=== PATIENT | male | born 1955 | race Caucasian/White ===

== ENCOUNTER 2016-11-09 04:16 | Inpatient (IN) ==
[2016-11-03 10:18] LABS: MANUAL DIFF NEEDED? NO; URINE MICRO REVIEW NEEDED? NO; URINE SOURCE CLEAN CATCH
[2016-11-03 10:24] LABS: BILIRUBIN URINE NEGATIVE (NEGATIVE); BLOOD URINE NEGATIVE (NEGATIVE); COLOR YELLOW; GLUCOSE URINE >1000 mg/dL (NEGATIVE); LEUKOCYTES URINE NEGATIVE (NEGATIVE); NITRITE URINE NEGATIVE (NEGATIVE); PH URINE 5.5; PROTEIN URINE NEGATIVE (NEGATIVE); SP GRAVITY URINE 1.027; TURBIDITY URINE CLEAR (CLEAR); UROBILINOGEN URINE NORMAL (NORMAL)
[2016-11-03 10:25] LABS: BASO% 0.5 % (0.0-0.8); EOS# 0.12 X1000 (0.0-0.7); EOS% 1.5 % (0.0-10.0); HEMATOCRIT 41.5 % (42.0-52.0); HEMOGLOBIN 14.1 g/dL (14.0-18.0); IMM GRAN# 0.03 X1000 (0.0-0.04); IMM GRAN% 0.4 % (0.0-0.5); LYMPH# 3.45 X1000 (1.2-3.4); LYMPH% 44.5 % (20.5-51.1); MCH 33.9 PG (27-31); MCV 99.8 FL (81-99); MONO# 0.51 X1000 (0.11-0.59); MONO% 6.6 % (1.7-9.3); MPV 9.7 FL (7.4-10.4); NEUT% 46.5 % (42.2-75.2); PLT 213 X1000 (130-400); RBC 4.16 XMIL (4.7-6.1); UR EPITHELIAL CELLS <10 /HPF (<10); URINE BACTERIA NEGATIVE /HPF; URINE RBC <10 /HPF (<10); URINE WBC <10 /HPF (<10)
[2016-11-03 10:33] LABS: INR 0.96; PROTIME 10.1 Seconds (9.2-11.7); PTT 24.3 Seconds (22.0-36.0)
[2016-11-03 11:36] LABS: AGAP 17; BUN 18 mg/dL (8-22); CALCIUM 9.4 mg/dL (8.8-10.2); CHLORIDE 98 mmol/L (98-107); COSMO 286; POTASSIUM 4.5 mmol/L (3.5-5.1); SODIUM 137 mmol/L (136-145); TCO2 22 mmol/L (25-35)
--- NOTE | 2016-11-03 11:54 | EKG Report ---
Test Performed on : 11/03/2016 09:50:00 AM Test Reason : PAT Blood Pressure : / mmHG Vent. Rate : 059 BPM Atrial Rate : 059 BPM P-R Int : 146 ms QRS Dur : 082 ms QT Int : 392 ms P-R-T Axes : 074 014 028 degrees QTc Int : 388 ms Sinus bradycardia. Otherwise normal ECG When compared with ECG of 29-JUL-2014 16:27, Non-specific change in ST segment in Inferior leads Nonspecific T wave abnormality has replaced inverted T waves in Inferior leads Nonspecific T wave abnormality no longer evident in Lateral leads Confirmed by Dani Hopkins MD ([id number]) on 11/03/2016 4:17:37 PM
[2016-11-09] MEDS ORDERED: MORPHINE IV PRN (06:57)
[2016-11-09] MEDS ORDERED: REGLAN ONE (08:00)
[2016-11-09] MEDS ORDERED: PEPCID ONE (08:00)
[2016-11-09] MEDS ORDERED: LYRICA ONE (08:01)
[2016-11-09] MEDS ORDERED: LR 1,000 ML ONE (08:01)
[2016-11-09] MEDS ORDERED: KEFZOL 1 GM/D5W 1 GM/50 ML IVPB ONE ×2 (08:01→11:29)
[2016-11-09] MEDS: COLACE PO SCH ×2 (08:26→20:24)
[2016-11-09] MEDS: CELEBREX PO SCH (08:32)
[2016-11-09] MEDS ORDERED: TORADOL ONE (10:12)
[2016-11-09] MEDS ORDERED: SODIUM CHLORIDE 0.9% ONE (10:12)
[2016-11-09] MEDS ORDERED: MARCAINE 0.25% PF/EPI 1:200,000 ONE (10:12)
[2016-11-09] MEDS ORDERED: CYKLOKAPRON 1,000 MG/NS 1,000 MG/100 ML IVPB ONE ×2 (10:12→13:02)
[2016-11-09] MEDS ORDERED: VANCOMYCIN ONE (10:12)
[2016-11-09] MEDS ORDERED: EXPAREL 1.3% ONE (10:13)
[2016-11-09] MEDS ORDERED: NEOSPORIN G.U. IRRIGANT ONE (10:13)
[2016-11-09 12:04] LABS: URINE MICRO REVIEW NEEDED? NO; URINE SOURCE CATH
[2016-11-09 12:16] LABS: BILIRUBIN URINE NEGATIVE (NEGATIVE); BLOOD URINE SMALL (NEGATIVE); COLOR YELLOW; GLUCOSE URINE 300 mg/dL (NEGATIVE); LEUKOCYTES URINE NEGATIVE (NEGATIVE); NITRITE URINE NEGATIVE (NEGATIVE); PH URINE 5.5; PROTEIN URINE NEGATIVE (NEGATIVE); SP GRAVITY URINE 1.025; TURBIDITY URINE CLEAR (CLEAR); UROBILINOGEN URINE NORMAL (NORMAL)
[2016-11-09 12:17] LABS: UR EPITHELIAL CELLS <10 /HPF (<10); URINE BACTERIA NEGATIVE /HPF; URINE WBC <10 /HPF (<10)
[2016-11-09] MEDS ORDERED: VERSED ONE (13:28)
[2016-11-09] MEDS ORDERED: FENTANYL ONE (13:29)
[2016-11-09] MEDS ORDERED: DIPRIVAN 1% 500 MG/50 ML BOTTLE ONE (13:29)
--- NOTE | 2016-11-09 13:32 | OPERATIVE NOTE ---
PROCEDURE DATE: 11/09/2016 PREOPERATIVE DIAGNOSIS: Degenerative joint disease, right knee. POSTOPERATIVE DIAGNOSIS: Degenerative joint disease, right knee. PROCEDURE: Right total knee replacement. SURGEON: Dr. Rene Pace. MOTION DESIGNER: NA Roberts. ANESTHESIA: Spinal. COMPLICATION: None. PROCEDURE IN DETAIL: This 61-year-old male presents for right knee replacement. Risks, benefits, and no guarantees were discussed, and he is willing to proceed. He was taken to the operating room and satisfactory anesthesia obtained. The right leg was prepped and draped in usual sterile fashion. A time-out was taken to confirm operative site, procedure, and patient. The leg was wrapped with an Esmarch. Tourniquet inflated to 350 mmHg. A midline incision was made over the front of the knee followed by a quad tendon sparing arthrotomy. The patella was everted and resurfaced with freehand technique and sized to a 41 medialized dome patella. With the patella subluxed laterally, the knee was flexed and an intramedullary hole made in the distal femur. The distal femoral cutting block was secured in 5 degrees of valgus and the femoral resection made. The femur was sized to a DePuy Attune size 7 femoral component. The 4-in-1 block was secured and the anterior, posterior, and chamfer cuts sequentially made. The PCL was retained. Any osteophytes debrided about the femur. With the knee flexed and a PCL retractor behind the tibia to protect the PCL neurovascular bundle, the tibial cutting block was secured. Tibial resection was made and the flexion and extension gaps noted to be slightly tight with a 5 mm spacer. An additional 2 mm was taken off the tibia. The tibia was sized to a size 7 tibial tray. Trial reduction was performed with a 7 tibial tray and a 7 cruciate retaining femoral component with a 7 mm thick poly with good range of motion and stability. The trial implants were removed and the bony surfaces thoroughly irrigated with pulsatile lavage. Cement with a gram of vancomycin was then utilized to cement a DePuy Attune size 7 rotating platform base plate, size 7 right cruciate- retaining femoral component, and a 41 medialized dome patella. Excess cement was removed during the curing. A 7 mm temporary spacer was used to compress the prosthesis against cement mantle. The joint capsule was injected with Exparel and a Hemovac drain placed while the cement cured. After curing the cement, a 7 mm rotating platform poly was placed into the tibial tray and the knee reduced. Final range of motion was 0-120 degrees with midline patellar tracking. Good soft tissue balance was noted throughout the arc of motion. The knee was then irrigated with irrigant using pulsatile lavage. It was then closed over the drain with #1 Vicryl in the arthrotomy, 2-0 Vicryl in the subcutaneous, and skin mikayla on the skin edges. Sterile dressings completed the closure, and the patient was recovered from anesthesia and transferred to the recovery room in stable condition. No intraoperative complications were noted. Instrument count and sponge count was correct at the time of closure. cc: Janes Pace MD
[2016-11-09] MEDS ORDERED: XYLOCAINE-MPF 2% ONE (13:37)
[2016-11-09] MEDS ORDERED: LR 2,000 ML ONE (13:37)
[2016-11-09] MEDS ORDERED: ZOFRAN ONE (13:37)
[2016-11-09] MEDS ORDERED: OFIRMEV 1000 MG/ISOTONIC SOLN 1,000 MG/100 ML BOTTLE ONE (13:37)
[2016-11-09] MEDS ORDERED: DECADRON ONE (13:38)
[2016-11-09] MEDS ORDERED: NS 1,000 ML ONE (13:47)
--- NOTE | 2016-11-09 14:12 | PROGRESS NOTE ---
DATE: 11/09/2016 Mr. Torres is seen in the recovery room postop total knee replacement of the right knee. Presently he is afebrile with stable vital signs. He is comfortable with minimal complaints. Bandage is clean and dry. There is good capillary refill distally in the involved leg. His toes are up and downgoing actively. He appears to be stable at the present time. We discussed pain management with him. We will see him tomorrow for postop day 1. cc: Janes Pace MD
[2016-11-09] MEDS: NORCO-10 PO PRN ×3 (14:40→23:04)
[2016-11-09] MEDS: ACTOS PO SCH (14:43)
[2016-11-09] MEDS: DEPAKOTE PO SCH ×3 (14:44→16:43)
[2016-11-09] MEDS: FLOMAX PO SCH (14:44)
[2016-11-09] MEDS: GLUCOTROL PO SCH ×2 (14:45→20:24)
[2016-11-09] MEDS: TENORMIN PO SCH (14:46)
[2016-11-09] MEDS: TEGRETOL PO SCH ×3 (14:46→16:43)
[2016-11-09] MEDS: ZOCOR PO SCH (14:47)
--- NOTE | 2016-11-09 15:54 | Diag Imaging Result Doc PS360 ---
EXAM: KNEE 1-2 VIEWS-RIGHT - 11/09/2016 HISTORY: tka TECHNIQUE: Portable right knee two views COMPARISON: None. FINDINGS: There are postsurgical changes of recent right total knee prosthesis placement. Alignment appears satisfactory. There are no complicating features identified. There is hypertrophic bony spurring noted at the anterior superior and anterior inferior patella, as well as the tibial tuberosity. IMPRESSION: Satisfactory postoperative exam. Electronically signed by Nilay Sánchez 11/09/2016 3:51 PM
[2016-11-09] MEDS ORDERED: PNEUMOVAX 23 IM ONE (18:30)
[2016-11-09] MEDS: PERIDEX MT SCH (20:24)
[2016-11-10] MEDS ORDERED: NS 1,000 ML IV SCH (01:45)
[2016-11-10] MEDS: KEFZOL 1 GM/D5W 1 GM/50 ML IVPB IV SCH ×2 (01:57→10:00)
[2016-11-10] MEDS: NORCO-10 PO PRN ×3 (05:49→14:01)
[2016-11-10] MEDS ORDERED: XARELTO PO SCH (06:00)
[2016-11-10 06:56] LABS: HEMATOCRIT 36.1 % (42.0-52.0)
[2016-11-10 07:09] LABS: AGAP 14; BUN 14 mg/dL (8-22); CALCIUM 8.2 mg/dL (8.8-10.2); CHLORIDE 103 mmol/L (98-107); COSMO 280; POTASSIUM 4.4 mmol/L (3.5-5.1); SODIUM 139 mmol/L (136-145); TCO2 22 mmol/L (25-35)
--- NOTE | 2016-11-10 07:43 | DISCHARGE SUMMARY ---
ADMISSION DATE: 11/09/2016 DISCHARGE DATE: 11/10/2016 ADMITTING DIAGNOSES: 1. Degenerative joint disease of the knee. 2. History of diabetes. DISCHARGE DIAGNOSES: 1. Degenerative joint disease of the knee. 2. History of diabetes. ADMITTING HISTORY AND HOSPITAL COURSE: This 61-year-old male was admitted to the hospital on the 09 of November for a right knee replacement. He underwent knee replacement without complication. He was kept overnight and has remained afebrile with stable vital signs. His pain is controlled. He is discharged home today for home therapy and outpatient followup. At the present time, he is afebrile with stable vital signs. DISCHARGE MEDICATIONS: Include his home medicines consisting of atenolol 50 mg daily, carbamazepine 300 mg t.i.d., Depakote 500 mg t.i.d., Glucotrol 10 mg b.i.d., Actos 30 mg daily, Zocor 20 mg daily, and Flomax 0.4 mg daily. Additional medicines include Xarelto 10 mg daily and [place] 10 one to two every 4-6 hours p.r.n. pain. DISCHARGE INSTRUCTIONS: He is to follow up with me in 2 weeks. He is to return in the interim for any worsening signs or symptoms. cc: Janes Pace MD
[2016-11-10] MEDS: ZOCOR PO SCH (08:02)
[2016-11-10] MEDS: PERIDEX MT SCH (08:02)
[2016-11-10] MEDS: FLOMAX PO SCH (08:03)
[2016-11-10] MEDS: ACTOS PO SCH (08:03)
[2016-11-10] MEDS: DEPAKOTE PO SCH (08:03)
[2016-11-10] MEDS: GLUCOTROL PO SCH (08:03)
[2016-11-10] MEDS: TEGRETOL PO SCH (08:03)
[2016-11-10] MEDS: CELEBREX PO SCH (08:04)
[2016-11-10] MEDS: TENORMIN PO SCH (08:04)
[2016-11-10] MEDS: COLACE PO SCH (08:04)
[2016-11-10 12:36] VITALS: BP 122/54
== END 2016-11-10 15:08 | disposition home health service (06) ==
LOC: SURHOLD 04:16 → 4N 12:04
PROVIDERS: ADMIT Orthopaedic Surgery Adult Reconstructive Orthopaedic Surgery; ATTEND Orthopaedic Surgery Adult Reconstructive Orthopaedic Surgery

== ENCOUNTER 2019-04-05 12:02 | Inpatient (IN) ==
[2019-04-05] MEDS ORDERED: SALINE LOCK IV FLUID XX ONE (12:28)
[2019-04-05] MEDS ORDERED: NITROGLYCERIN SL PRN (12:46)
[2019-04-05] MEDS: NITROGLYCERIN TOP ONE ×2 (13:24→14:59)
[2019-04-05] MEDS: ASPIRIN PO ONE ×2 (13:25→14:59)
--- NOTE | 2019-04-05 13:57 | EKG Report ---
Test Performed on : 04/05/2019 1:53:34 PM Test Reason : CP Blood Pressure : / mmHG Vent. Rate : 113 BPM Atrial Rate : 226 BPM P-R Int : 000 ms QRS Dur : 086 ms QT Int : 274 ms P-R-T Axes : 253 017 096 degrees QTc Int : 375 ms Atrial flutter. with 2:[address]. [address] and T wave abnormality Abnormal ECG When compared with ECG of 03-NOV-2016 09:50, Atrial flutter. has replaced Sinus rhythm. Vent. rate has increased BY [address] now depressed in Inferior leads ST now depressed in Lateral leads Nonspecific T wave abnormality now evident in Lateral leads Confirmed by Sandeep AYALA, Dani Cooney ([id number]) on 04/05/2019 2:32:10 PM
--- NOTE | 2019-04-05 14:59 | Diag Imaging Result Doc PS360 ---
EXAM: CHEST-2 VIEWS HISTORY: hypoxia,CHF TECHNIQUE: Two views COMPARISON: None. FINDINGS: The lungs are well expanded. The heart is not enlarged. The vessels are not distended. There are no infiltrates. No pleural effusions. Scattered granuloma. IMPRESSION: No congestive failure. Electronically signed by Torito Pete 04/05/2019 2:57 PM
[2019-04-05 16:22] LABS: BASO# 0.03 X1000 (0.0-0.2); BASO% 0.5 % (0.0-0.8); EOS# 0.17 X1000 (0.0-0.7); EOS% 2.8 % (0.0-10.0); HEMATOCRIT 39.3 % (42.0-52.0); HEMOGLOBIN 13.1 g/dL (14.0-18.0); IMM GRAN# 0.03 X1000 (0.0-0.04); IMM GRAN% 0.5 % (0.0-0.5); LYMPH# 2.81 X1000 (1.2-3.4); LYMPH% 45.9 % (20.5-51.1); MCH 33.5 PG (27-31); MCHC 33.3 g/dL (33-37); MCV 100.5 FL (81-99); MONO# 0.42 X1000 (0.11-0.59); MONO% 6.9 % (1.7-9.3); MPV 10.2 FL (7.4-10.4); NEUT# 2.66 X1000 (1.4-6.5); NEUT% 43.4 % (42.2-75.2); PLT 174 X1000 (130-400); RBC 3.91 XMIL (4.7-6.1); RDW 12.9 % (11.5-14.5); WBC 6.12 X1000 (4.8-10.8)
[2019-04-05 16:32] LABS: AGAP 17; ALB/GLOB RATIO 1.4; ALBUMIN 3.9 g/dL (3.5-5.0); ALKALINE PHOSPHATASE 63 U/L (32-122); BUN 29 mg/dL (8-22); CALCIUM 9.1 mg/dL (8.8-10.2); CHLORIDE 101 mmol/L (98-107); COSMO 289; CREATININE 0.9 mg/dL (0.7-1.2); ESTIMATED GFR > 60; GLUCOSE 194 mg/dL (70-104); GOT 11 U/L (10-34); GPT 12 U/L (10-44); POTASSIUM 4.2 mmol/L (3.5-5.1); SODIUM 139 mmol/L (136-145); TCO2 21 mmol/L (25-35); TOTAL BILIRUBIN 0.21 mg/dL (0.20-1.00); TOTAL PROTEIN 6.7 g/dL (6.3-8.3)
--- NOTE | 2019-04-05 17:17 | CARDIOLOGY CONSULTATION ---
DATE: 04/05/2019 CHIEF COMPLAINT: Shortness of breath. HISTORY OF PRESENT ILLNESS: Mr. Torres is a 63-year-old gentleman who presented to his primary care physician's office with shortness of breath on exertion. This has been going on for weeks. He reports difficulty going up stairs as well as at times walking across a room. He denies any overt chest pain. He denies any orthopnea. The patient also reports periodic episodes of palpitations. PAST MEDICAL HISTORY: 1. Significant for hypertension. 2. Diabetes. 3. Hyperlipidemia. 4. Seizure disorder. 5. BPH. SOCIAL HISTORY: He does not smoke. FAMILY HISTORY: Significant for hypertension. REVIEW OF SYSTEMS: A 10 system review of systems is negative except for those things mentioned in HPI. PHYSICAL EXAMINATION: Vital Signs: During my examination, his heart rate was 110 beats per minute. He weighs 264 pounds. General: He is in no acute distress. HEENT: Oropharynx is moist. Poor dentition. Eye examination with pink conjunctivae. White sclerae. Neck: Examination shows no obvious thyromegaly or thyroid tenderness. Cardiovascular: He sounds to be in a regular rate and rhythm. He is in a regular but tachycardic rhythm. He has no murmurs. He has no S3. He has no lower extremity edema. Chest: Exam is clear bilaterally. He has no increased work of breathing. Abdomen: Soft, nontender, nondistended. He has no obvious organomegaly. Skin: Warm and dry throughout without any rashes. Neurological: Moving all extremities well. PERTINENT DATA: His chest x-ray is unremarkable for any abnormal findings. His EKG shows atrial flutter with 2 to 1 conduction with rate of 113 beats per minute. His lab data is not back as of yet. ASSESSMENT: Mr. Torres is a 63-year-old gentleman who presents with atrial flutter. PLAN: At this point, we will proceed with initiation of Lovenox. We will continue him on atenolol. Tentative plan for DILLAN cardioversion in the morning. Risks, benefits, and alternatives have been explained to the patient. He has a TSH ordered for the morning. cc: Kamar Haas MD
--- NOTE | 2019-04-05 17:41 | HISTORY AND PHYSICAL ---
PRIMARY CARE PROVIDER: Dr. Cecil Dominguez. CHIEF COMPLAINT: Shortness of breath. HISTORY OF PRESENT ILLNESS: Mr. Torres is a 63-year-old male with a past medical history of idiopathic seizure disorder, controlled with Depakote and Tegretol, hypertension, diabetes mellitus type 2, hyperlipidemia, who reported to Dr. Dominguez's office today after having some dyspnea for some weeks now. He states he normally walks about 2 miles at [facility] and then he noticed he could only get in a few laps before he would become short of breath and dizzy. Then he got to the point where he was having shortness of breath and dizziness walking up the stairs inside his home. Then over the last week, it continued to increase. He got to the point where he could only walk about 10 feet before having to stop and rest. He denied any chest pain. He did not really have palpitations per se, but he could definitely tell that his heart rate was elevated. He did get some relief with resting. There would be some associated diaphoresis as well. No nausea or vomiting. He was directly admitted for some EKG changes, as well as further workup and a cardiology consult. EKG at [facility] showed atrial flutter with a 2:1 AV conduction. He has been seen by Dr. Kamar Haas with Cardiology. They will set him up with a cardioversion in the a.m. He has undergone laboratory data and diagnostics which are currently pending and he will remain on EKG on PVC. PAST MEDICAL HISTORY: 1. Idiopathic seizure disorder. 2. Diabetes. 3. Hypertension. 4. Hyperlipidemia. PAST SURGICAL HISTORY: Cystoscopy with Dr. Schilling and a right total knee with Dr. Pace. REVIEW OF SYSTEMS: Twelve-point review of systems completely negative except for those mentioned in HPI. SOCIAL HISTORY: He is and lives in [place]. Has 1 son. No tobacco, alcohol, or illicit drug use. FAMILY HISTORY: Dad at the age of 48 of a sudden OR. Mother had a gastric lipoma. Brothers and sisters that are healthy. PHYSICAL EXAMINATION: VITAL SIGNS: Temperature 98.1 degrees, heart rate 114, respirations 18, blood pressure 116/67, O2 is 95% on room air. GENERAL: Mr. Torres is a pleasant, 63-year-old male who is sitting on the side of bed, drinking a Sprite, in no acute distress. He has been down for various testings with a chest x- ray, EKGs, and echocardiogram. HEENT: Atraumatic, normocephalic. PERRL. NECK: Supple. Trachea midline. CARDIOVASCULAR: S1, S2 appreciated. I did not appreciate any murmurs, gallops, or rubs. RESPIRATORY: Lung sounds clear bilaterally. GI: Soft, nontender, nondistended. Positive bowel sounds in 4 quadrants. EXTREMITIES: Lower extremities were negative for edema. Bilateral pedal pulses are palpable. NEUROLOGIC: No focal deficits noted. LABORATORY AND DIAGNOSTICS: Pending. ASSESSMENT AND PLAN: 1. Atrial flutter with a 2:[address] conduction with nonspecific [address] and T-wave abnormalities. Mr. Torres will undergo a DILLAN cardioversion with Dr. Haas in the a.m. He will be n.p.o. after midnight. He was initiated on full dose Lovenox. 2. History of seizures. We will continue his Depakote and Tegretol. 3. Hyperlipidemia. Continue Zocor. 4. Hypertension. Continue atenolol. 5. Further recommendations to follow physician evaluation, laboratory and diagnostic data. Dictated by NA Lake for Jose Perez MD cc: MD Cecil Jones MD Peter Johnson, MD
--- NOTE | 2019-04-05 18:40 | HISTORY AND PHYSICAL ---
ADDENDUM: HISTORY OF PRESENT ILLNESS: The patient was seen and examined by me [id number]. All of the vital signs and images were reviewed. Laboratory at this moment is pending. EKG showed a floater. At the moment of my physical exam, this patient was stable. He is not complaining of chest pain or shortness of breath. Cardiology Department already evaluated this patient. It looks like he is going to be cardioverted in the morning. Apparently, this patient started having symptoms a couple of weeks ago during some physical activity. He got dizzy and he started feeling some weakness. It has been happening on and off, but yesterday, when he tried to go from his room to the bathroom, he got dizzy and also he felt like his heart rate was increased. He did not go to the doctor at that moment, but today when he visited a doctor, they found out that his heart rate was elevated and he was having atrial flutter. We are just getting his laboratory done. I believe an echocardiogram has been done already. We will put this patient back on medication for his blood pressure and also for his diabetes. Lovenox twice a day has been ordered already. Like I said, hopefully he will be cardioverted tomorrow if he does not go back to sinus rhythm. PHYSICAL EXAMINATION: VITAL SIGNS: This patient has an elevated heart rate. It has been around 115 to 170s, is arrhythmic. I do not hear any murmur. CHEST: Clear to auscultation. No wheezing. No rales. EXTREMITIES: No edema. No clubbing. No cyanosis. NEUROLOGICAL: This patient is completely alert and oriented x3. No focal deficits. I agree with the rest of the nurse practitioner's assessment and plan. cc: Jose Perez MD
[2019-04-05] MEDS ORDERED: TYLENOL PO PRN (20:52)
[2019-04-05] MEDS ORDERED: ZOCOR PO SCH (21:00)
[2019-04-05] MEDS ORDERED: FLOMAX PO SCH (21:00)
[2019-04-05] MEDS ORDERED: KLONOPIN PO ONE (21:09)
[2019-04-05] MEDS: DEPAKOTE PO SCH (21:13)
[2019-04-05] MEDS: TEGRETOL PO SCH (21:13)
[2019-04-05] MEDS: LOVENOX SUBQ SCH (21:17)
[2019-04-05] MEDS ORDERED: ZOFRAN IV PRN (22:28)
[2019-04-05] MEDS ORDERED: SODIUM CHLORIDE 0.9% INJ ONE (22:29)
[2019-04-05] MEDS ORDERED: PHENERGAN IV ONE (22:29)
--- NOTE | 2019-04-05 22:49 | EKG Report ---
Test Performed on : 04/05/2019 10:31:03 PM Test Reason : elevated heart rate Blood Pressure : / mmHG Vent. Rate : 106 BPM Atrial Rate : 212 BPM P-R Int : 000 ms QRS Dur : 090 ms QT Int : 392 ms P-R-T Axes : 000 009 187 degrees QTc Int : 520 ms Atrial flutter. with 2:[address]. [address] abnormality, possible inferior subendocardial injury Prolonged QT Abnormal ECG When compared with ECG of 05-APR-2019 13:53, No significant change was found Confirmed by Sandeep AYALA, Dani Cooney ([id number]) on 04/06/2019 7:37:08 AM
[2019-04-06 06:00] LABS: BASO# 0.02 X1000 (0.0-0.2); BASO% 0.3 % (0.0-0.8); EOS# 0.03 X1000 (0.0-0.7); EOS% 0.5 % (0.0-10.0); HEMATOCRIT 39.8 % (42.0-52.0); HEMOGLOBIN 13.2 g/dL (14.0-18.0); IMM GRAN# 0.02 X1000 (0.0-0.04); IMM GRAN% 0.3 % (0.0-0.5); LYMPH# 2.38 X1000 (1.2-3.4); LYMPH% 36.8 % (20.5-51.1); MCH 33.5 PG (27-31); MCHC 33.2 g/dL (33-37); MONO# 0.34 X1000 (0.11-0.59); MONO% 5.3 % (1.7-9.3); MPV 10.6 FL (7.4-10.4); NEUT# 3.68 X1000 (1.4-6.5); NEUT% 56.8 % (42.2-75.2); PLT 152 X1000 (130-400); RBC 3.94 XMIL (4.7-6.1); RDW 12.8 % (11.5-14.5); WBC 6.47 X1000 (4.8-10.8)
[2019-04-06] MEDS: HUMULIN R SUBQ SCH ×2 (06:20→12:31)
[2019-04-06 06:31] LABS: AGAP 17; ALB/GLOB RATIO 1.6; ALBUMIN 3.9 g/dL (3.5-5.0); ALKALINE PHOSPHATASE 61 U/L (32-122); BUN 25 mg/dL (8-22); CALCIUM 9.1 mg/dL (8.8-10.2); CHLORIDE 101 mmol/L (98-107); COSMO 293; CREATININE 0.7 mg/dL (0.7-1.2); ESTIMATED GFR > 60; GLUCOSE 232 mg/dL (70-104); GOT 10 U/L (10-34); GPT 11 U/L (10-44); POTASSIUM 4.7 mmol/L (3.5-5.1); SODIUM 141 mmol/L (136-145); TCO2 23 mmol/L (25-35); TOTAL BILIRUBIN 0.27 mg/dL (0.20-1.00); TOTAL PROTEIN 6.4 g/dL (6.3-8.3)
--- NOTE | 2019-04-06 06:35 | EKG Report ---
Test Performed on : 04/06/2019 06:11:46 AM Test Reason : atrial flutter Blood Pressure : / mmHG Vent. Rate : 117 BPM Atrial Rate : 234 BPM P-R Int : 000 ms QRS Dur : 082 ms QT Int : 278 ms P-R-T Axes : 242 022 088 degrees QTc Int : 387 ms Atrial flutter. with 2:[address]. [address] and T wave abnormality Abnormal ECG When compared with ECG of 05-APR-2019 22:31, (Unconfirmed) No significant change was found Unconfirmed Result
[2019-04-06] MEDS: TEGRETOL PO SCH ×2 (07:57→14:54)
[2019-04-06] MEDS: ACTOS PO SCH ×2 (07:57→09:34)
[2019-04-06] MEDS: DEPAKOTE PO SCH ×2 (07:57→14:54)
[2019-04-06] MEDS: TENORMIN PO SCH ×2 (07:57→09:34)
[2019-04-06] MEDS: LOVENOX SUBQ SCH (07:57)
--- NOTE | 2019-04-06 09:10 | ECHO REPORT ---
ORDER DATE: 04/05/2019 DIAGNOSES: MEASUREMENTS: Interventricular septum: 1.1 Left ventricle posterior wall: Left ventricle end-diastolic diameter: 4.5 Left ventricle end-systolic diameter: Left atrium: 3.3 Aortic root diameter: 3.2 Mean right ventricle end-diastolic dimension: SUMMARY: 1. Technically difficult study due to limited acoustic window quality. 2. Aortic valve is trileaflet and opens normally on 2-dimensional images. 3. Mitral and tricuspid valves are without obvious structural abnormality. Pulmonic valve not seen. The aortic root is normal in size. 4. Normal left ventricular dimension suggested. Estimated left ventricular ejection fraction appears to be at least 60%. No obvious wall motion abnormality can be appreciated. 5. Left atrium, right atrium and right ventricle are normal in size with grossly preserved right ventricular systolic function. 6. No pericardial effusion. 7. Appearance of inferior vena cava suggests normal central venous pressure. cc: MD Cecil Schwab MD
--- NOTE | 2019-04-06 09:24 | PROGRESS NOTE ---
DATE: 04/06/2019 SUBJECTIVE: The patient seems to be feeling better today. Apparently, yesterday night he was not feeling good. He is scheduled to get a DILLAN cardioversion today. PHYSICAL EXAMINATION: Temperature 97.4 degrees, pulse 116, respiratory rate 14, blood pressure 132/82, oxygen saturation 96 on room air.HEENT: Normocephalic, no trauma. PERRLA. Neck: Neck is supple. No JVD. No masses. Central trachea. Chest: Clear to auscultation. No wheezing. No rales. Mild crepitus at the bases. Cardiovascular: Irregularly irregular rate and rhythm. Extremities: No edema, no clubbing, no cyanosis. Neurological: The patient is alert. He is oriented x3. No focal deficits. LABORATORY: WBC 6.4, hemoglobin 13.2, hematocrit 39.8, platelets 452,000. Sodium 141, potassium 4.7, chloride 101, bicarbonate 23, BUN 25, creatinine 0.7 glucose 232, calcium 9.1. Troponins negative x3. TSH 2.4. ASSESSMENT AND PLAN: 1. A flutter. The patient presented with a flutter and nonspecific ST-T wave changes. Mr. Torres will undergo a DILLAN cardioversion with Dr. Haas today in the morning, he has been NPO after midnight, continue with Lovenox. 2. History of seizures. Continue with Depakote and Tegretol. 3. Hyperlipidemia continue with Zocor. 4. Diabetes continue with same management. 5. Hypertension continue with atenolol. cc: Jose Perez MD
[2019-04-06] MEDS ORDERED: XYLOCAINE 2% VISCOUS ONE (10:07)
[2019-04-06] MEDS ORDERED: DIPRIVAN 1% ONE ×2 (10:22→10:52)
[2019-04-06] MEDS ORDERED: ANESTHESIA PB SET 88 IN 5742 ONE (10:38)
[2019-04-06] MEDS ORDERED: NS 1,000 ML ONE (10:39)
[2019-04-06] MEDS ORDERED: ALOE VERA TOP PRN (12:09)
[2019-04-06 12:15] VITALS: BP 107/74
--- NOTE | 2019-04-06 12:40 | EKG Report ---
Test Performed on : 04/06/2019 12:08:45 PM Test Reason : POST CVN Blood Pressure : / mmHG Vent. Rate : 067 BPM Atrial Rate : 067 BPM P-R Int : 216 ms QRS Dur : 084 ms QT Int : 426 ms P-R-T Axes : 063 028 050 degrees QTc Int : 450 ms Sinus rhythm. with 1st degree AV block. Otherwise normal ECG When compared with ECG of 06-APR-2019 06:11, (Unconfirmed) Sinus rhythm. has replaced Atrial flutter. Vent. rate has decreased BY [address] no longer depressed in Inferior leads ST no longer depressed in Lateral leads Nonspecific T wave abnormality no longer evident in Lateral leads Unconfirmed Result
--- NOTE | 2019-04-06 14:41 | CARDIAC CATH REPORT ---
PROCEDURE NAME: - CARDIOVERSION: SUMMARY: Patient sedated per Anesthesiology with propofol and underwent transesophageal echocardiography reported separately. There was no evidence of intracardiac thrombus or left atrial thrombus. The patient subsequently had synchronous direct current cardioversion with 30 joules converting atrial flutter to atrial fibrillation with slow ventricular response. Patient subsequently underwent repeat direct current cardioversion with 100 joules biphasic converting atrial fibrillation to sinus bradycardia. The patient tolerated the procedure without apparent complications. CONCLUSIONS: Successful cardioversion of atrial flutter restoring sinus rhythm. cc: Vidal Page MD
[2019-04-06] MEDS ORDERED: FLU VACCINE IM ONE (15:54)
[2019-04-06] MEDS ORDERED: PNEUMOVAX 23 IM ONE (15:54)
[2019-04-06] MEDS ORDERED: ELIQUIS PO SCH (21:00)
--- NOTE | 2019-04-07 05:03 | DISCHARGE SUMMARY ---
ADMISSION DATE: 04/05/2019 DISCHARGE DATE: 04/06/2019 DISCHARGE DIAGNOSES: 1. Atrial flutter status post cardioversion, converted to sinus rhythm. 2. History of seizures. 3. Hyperlipidemia. 4. Diabetes. 5. Hypertension. CONSULT: Cardiology Department, Dr. Kamar Haas/Dr. Vidal Page. PROCEDURES PERFORMED: 1. Chest x-ray dated 04/05/2019. Impression: No congestive failure. 2. Echocardiogram dated 04/05/2019. Summary: Normal left ventricular dimension, estimated left ventricular ejection fraction appears to be at least 60%. 3. Successful cardioversion of atrial flutter, restoring sinus rhythm on 04/06/2019. HOSPITAL COURSE: A 63-year-old male with a past medical history of idiopathic seizure disorder controlled with Depakote and Tegretol, hypertension, diabetes mellitus type 2, hyperlipidemia, who reported to Dr. Dominguez's office yesterday after having some dyspnea for some weeks now, he states he normally walks about 2 miles and then he noticed he could only get in a few laps before he would become short of breath and dizzy. He got to the point where he was having shortness of breath and dizziness walking up the stairs inside his home. Then over the last week, it continued to increase. He got to the point where he could only walk about 10 feet before having to stop to rest. He denies any chest pain, nausea, or vomiting, but he was feeling his heart rate that was elevated. He did get some relieve with resting, also with some diuresis as well. He was directly admitted on 04/05/2019, EKG showed atrial flutter, Dr. Haas with Cardiology Department evaluated this patient and he this patient was set up for a DILLAN cardioversion today. We started this patient on anticoagulation since yesterday. He went for DILLAN cardioversion and after the procedure restored the sinus rhythm, this patient was feeling much better. Cardiology department re-evaluated this patient and they have decided to discharge this patient. The dose of atenolol has been decreased and this patient has been placed on Eliquis twice a day. He will follow up with Dr. Haas in about 1 month and also follow up with his primary care doctor in a week. At the moment of discharge, this patient was in a stable medical condition and tolerating p.o. DISCHARGE PHYSICAL EXAMINATION: Vital signs: Temperature 97.6 degrees, pulse 65, respiratory rate 16, blood pressure 107/74, oxygen saturation 95% on room air. HEENT: Head normocephalic, atraumatic. PERRLA. Neck: Supple. No JVD. No masses. Central trachea. Chest: Clear to auscultation. No wheezing. No rales. Cardiovascular: Regular rate and rhythm. Abdomen: Soft, nontender, nondistended. No hepatosplenomegaly. Extremities: No edema. No clubbing. No cyanosis. Neurological: The patient is alert. He is oriented x3. No focal deficits. LABORATORY: WBC 6.4, hemoglobin 13.2, hematocrit 39.8, platelets 152,000. Sodium 141, potassium 4.7, chloride 101, bicarbonate 23, BUN 25, creatinine 0.7. Glucose 232, calcium 9.1, AST 10, ALT 11, alkaline phosphatase 61, albumin 3.9. DISCHARGE MEDICATIONS: Eliquis 5 mg p.o. b.i.d., aspirin 325 mg p.o. daily, atenolol 25 mg p.o. daily, Tegretol 200 mg, 1.5 tablets p.o. t.i.d., Depakote ER 500 mg p.o. t.i.d., glipizide 10 mg p.o. b.i.d., Actos 30 mg p.o. daily, simvastatin 20 mg p.o. daily, and tamsulosin 0.4 mg p.o. daily. TIME SPENT: Discharging this patient 20 minutes. cc: Jose Perez MD
[2019-04-07] MEDS ORDERED: TENORMIN PO SCH (09:00)
--- NOTE | 2019-04-09 18:42 | ECHO REPORT ---
ORDER DATE: 04/06/2019 SUMMARY: After intravenous sedation with propofol per anesthesiology, I passed transesophageal echocardiogram probe into the patient's esophagus without difficulty. Transesophageal echocardiography was subsequently performed without incident and demonstrated: 1. Aortic valve is trileaflet and opens normally on 2-dimensional images, tricuspid and pulmonic valves are without evidence of structural abnormality with mild mitral regurgitation, mild tricuspid regurgitation. Aortic root is normal size. 2. Normal left ventricular chamber size with mild concentric left hypertrophy is demonstrated. Estimated left ventricular ejection fraction appears to be at least 60%. No regional wall motion abnormalities evident. Left atrium, right atrium, right ventricle normal in size. All 4 cardiac chambers are without evidence of intracardiac thrombus. Left atrial appendage is free of intracardiac thrombus. 3. No pericardial effusion. 4. Interatrial septum appears intact and there is no evidence of interatrial shunting on color Doppler. Intravenous agitated saline contrast study reveals no evidence of [id number] intracardiac shunting. 5. No pericardial effusion. 6. Descending thoracic aorta appears free of atherosclerotic plaquing. cc: MD Kamar Schwab MD
== END 2019-04-06 16:25 | disposition home or self-care (01) | DRG 310 ==
LOC: SUATTDRO 12:02 → DIRADM 12:02 → 2N 13:10
PROVIDERS: ATTEND Internal Medicine